=== PATIENT | female | born 2000 | race Two or more races ===

== ENCOUNTER 2022-03-13 16:58 | Emergency (ER) | payer SELFPAY ==
[2022-03-13 16:59] VITALS: BP 149/98; PULSE 90; RESP 24; TEMP 36.6; O2SAT 100; BMI 35.2
== END 2022-03-13 17:29 | disposition left against medical advice (07) ==
LOC: ED 17:30
DX: Z53.21 Procedure and treatment not carried out due to patient leaving prior to being seen by health care provider (principal)

== ENCOUNTER 2022-10-29 16:00 | Inpatient (IN) | payer OTHER, SELFPAY ==
[2022-10-29 16:01] VITALS: BP 126/91; PULSE 94; RESP 18; TEMP 36.7; O2SAT 97; BMI 34.8
--- NOTE | 2022-10-29 16:34 | ED.VIS.GI ---
HPI HPI - GI History of Present Illness Chief Complaint: Abd Pain Informant: patient Narrative Narrative: Jeremias with nausea vomiting abdominal cramping after increasing medications. Patient had an increase in her Rybelsus recently. She is on this for weight loss. She states every time they have increased it she has the same symptoms. She gets loss of appetite, nausea vomiting abdominal cramping and just does not feel well. She states she has had mild soft stool but no real diarrhea. No blood in the vomiting. No fevers or chills. She has no history of prior intra-abdominal surgeries. She has nothing at home for the nausea. She occasionally has been able to get some food and water and but not much for a few days. PFSH PFSH Allergy/AdvReac Type Severity Reaction Status Date / Time No Known Allergies Allergy Verified 10/29/22 16:01 Social History Smoking Status: Never smoker ROS ROS ED ROS Narrative A complete review of systems was performed and is negative except as documented in the history of present illness. Some specific details below. Constitutional: No recent fevers or chills. No malaise. EYE: No visual complaints or pain. ENT: No difficulty swallowing. No swelling. No pain. GERD CV: No chest pain or palpitations. Respiratory: No dyspnea. No hemoptysis. No difficulty taking breaths. GI: Please see history of present illness. : No frequency dysuria or hematuria. No odor. Musculoskeletal: No recent trauma. No pains. Skin: No rash. Nondiaphoretic. Neuro: No weakness or numbness. Endocrine: No polyuria or polydipsia. History of diabetes. EXAM Physical Exam Narrative Exam Narrative: CONSTITUTIONAL: Patient is nontoxic in appearance. The patient looks comfortable. HEENT: No notable trauma. Mucous membranes minimally dry. No sinus tenderness. No indication of pain with swallowing. EYES: No conjunctival injection. No proptosis. Icterus CARDIOVASCULAR: Regular rate. Regular rhythm. No notable murmur. No JVD. RESPIRATORY: No respiratory distress. Breathing is unlabored. No wheezes. No rhonchi. No rales. No pain with a deep breath. GASTROINTESTINAL: Not distended. Bowel sounds are normal. Very mild epigastric tenderness but no rebound or guarding. No notable right upper quadrant tenderness. Nothing below the umbilicus. GENITOURINARY: No tenderness over the bladder. No CVA tenderness. MUSCULOSKELETAL: Atraumatic. No peripheral edema. No cord. No tenderness along the deep venous system. No asymmetry. NEUROLOGICAL: Patient is alert and appropriate. No focal deficit noted. SKIN: No noted rashes. No diaphoresis. PSYCHIATRIC: Patient is calm. Mood is appropriate. Const Vital Signs: 10/29/22 16:01 10/29/22 18:01 10/29/22 19:49 Temperature 98.1 F Temperature Source Temporal Pulse Rate 94 90 Respiratory Rate 18 18 15 Blood Pressure 126/91 H 127/78 H Blood Pressure Mean 102 94 Pulse Ox 97 99 Oxygen Delivery Method Room Air Room Air MDM MDM MDM Narrative Medical decision making narrative: BC shows no marked abnormalities. Patient's electrolytes actually look pretty good. Sodium is minimally elevated. But no acute kidney disease. Patient's liver function test showed minimal elevations but she does not have isolated tenderness over about the gallbladder Patient sees negative patient's urine actually is concerning for UTI. I will treat this pending culture because she has leukocyte Estrace nitrites cloudy and white cells. But she also was not a real clean-catch. But with her nausea and we should treat this pending cultures. Patient was still complaining of pain and nausea. I have given meds for pain. I am giving further meds for nausea. We will order a CT scan as she is just complaining of discomfort and it moves to different areas. My independent interpretation of the CT shows no sign of acute obstruction. Slightly dilated small bowel loops. Gallbladder is distended but does not look inflamed. Final reading will was suspicious for some small bowel dilation which could be a localized ileus or poss no early or partial small bowel obstruction. During her exam and the lack of prior abdominal surgery I do not think this likely represents an obstruction. But my concern is if she still having pain nausea vomiting cannot keep meds down we may need to bring her in the hospital hydrate her control the symptoms and repeat imaging. Morphine to help with pain but she still has pain. Zofran did not help the vomiting she actually vomited again after that. We have given her Phenergan which is helping but she is still nauseated with this. Lab Data Attestation: I reviewed the patient's lab results. Labs: Laboratory Results - last 24 hr 10/29/22 10/29/22 16:44 17:21 WBC 8.8 RBC 4.64 Hgb 12.2 Hct 38.6 MCV 83.2 MCH 26.3 L MCHC 31.6 L RDW Std Deviation 41.2 RDW Coeff of Lisa 13.8 Plt Count 272 MPV 10.5 Immature Gran % (Auto) 0.500 Neut % (Auto) 66.7 Lymph % (Auto) 22.9 [place] % (Auto) 5.9 Eos % (Auto) 3.8 Baso % (Auto) 0.2 Absolute Neuts (auto) 5.9 Absolute Lymphs (auto) 2.01 Nucleated RBC % 0 Sodium 135 L Potassium 3.7 Chloride 104 Carbon Dioxide 23.0 Anion Gap 8 BUN 5 L Creatinine 0.69 Estim Creat Clear Calc 107.58 Est GFR (MDRD) Af Amer 140 Est GFR (MDRD) Non-Af 116 BUN/Creatinine Ratio 7.3 L Glucose 85 Calcium 9.2 Total Bilirubin 1.30 H AST 82 H ALT 89 H Alkaline Phosphatase 101 Total Protein 7.9 Albumin 3.3 Globulin 4.6 H Albumin/Globulin Ratio 0.7 L Lipase 33 Serum , Qual NEGATIVE Urine Color Luli Urine Clarity Cloudy Urine pH 6.5 Ur Specific [place] 1.020 Urine Protein 30 H Urine Glucose (UA) Normal Urine Ketones 150 A* Urine Occult Blood 10 H Urine Nitrite Positive H Urine Bilirubin 3 H Urine Urobilinogen 8 H Ur Leukocyte Esterase 500 H Urine RBC 0 SEEN Urine WBC 10-25 SEEN Ur Squamous Epith Cells 25-50 SEEN Urine Bacteria 1+ Urine Mucus 0 SEEN Radiography Diagnostic Testing: Clinical Impression(s) from Imaging Studies Abdomen/Pelvis CT 10/29/22 19:07 IMPRESSION: Left-sided small bowel dilatation which may indicate a localized ileus versus early or partial small bowel obstruction versus nonspecific distention related to peristalsis. Ankle correlation recommended and follow-up with 2 views of the abdomen recommended to evaluate for interval change. No acute appendicitis. Normal abdominal viscera. Electronically Signed: Natalie Hanks MD at 19:53 EDT , Discharge Plan Dx/Rx/DC Orders Clinical Impression: Urinary tract infection, Ileus, Intractable nausea and vomiting Disposition Disposition: Acute Care Hospital [facility]
[2022-10-29] MEDS: Dicyclomine 20 MG/2 ML Vial IM (16:52)
[2022-10-29] MEDS: 0.9% Normal Saline 1,000 ML 1000 ML IV (16:52)
[2022-10-29] MEDS: Ondansetron 4 MG/2 ML Vial IV (16:52)
[2022-10-29 16:57] LABS: Absolute Lymphocyte Count 2.01 X10^3/uL (0.83-4.51); Absolute Neutrophil Count 5.9 X10^3/uL (2.0-7.7); Basophil# 0.02 X10^3/uL; Basophil% 0.2 % (0-1); Eosinophil# 0.33 X10^3/uL; Eosinophils% 3.8 % (0-5); Hematocrit 38.6 % (37-47); Hemoglobin 12.2 g/dL (12.0-15.0); Lymphocyte # 2.01 X10^3/ul (0.83-4.51); Lymphocyte % 22.9 % (19-41); Mean Corp Hgb Conc 31.6 g/dL (32-36); Mean Corpuscular Hgb 26.3 pg (27.0-32.0); Mean Corpuscular Volume 83.2 fL (81-99); Mean Platelet Vol. 10.5 fl (6.2-12.0); Monocyte# 0.52 X10^3/uL; Monocyte% 5.9 % (0-10); NRBC Flagged by Analyzer 0 % (0-5); Neutrophil # 5.87 X10^3/uL (2.7-7.7); Neutrophil % 66.7 % (47-70); Platelet Count 272 K/mm3 (150-450); RBC Distribution Width CV 13.8 % (11.6-14.6); RBC Distribution Width SD 41.2 fl (35.1-43.9); Red Blood Count 4.64 M/mm3 (4.2-5.4); White Blood Count 8.8 K/mm3 (4.4-11.0)
[2022-10-29 17:02] LABS: Internal QC Validated? YES +Cl - CLEAR BKGD; Pregnancy, Serum, hCG Quali. NEGATIVE Negative
[2022-10-29 17:16] LABS: ALB/GLOB Ratio 0.7 RATIO (0.9-2.4); AST(SGOT) 82 U/L (15-37); Alanine Aminotransfer ALT/SGPT 89 U/L (13-56); Albumin, Serum 3.3 g/dL (3.2-5.0); Alkaline Phosphatase 101 U/L (45-117); Anion Gap 8 (5-15); BUN 5 mg/dL (7-18); BUN/Creat Ratio 7.3 RATIO (10-20); Calcium,Total 9.2 mg/dL (8.5-10.1); Chloride 104 mmol/L (98-107); Creatinine, Serum 0.69 mg/dL (0.55-1.02); EST Glomerular Filtration Rate 116 mL/min (>60); Est Glom Filt Rate - Afr Amer 140 mL/min (>60); Estimated Creatinine Clearance 107.58 ml/min; Globulin 4.6 g/dL (2.2-4.2); Glucose 85 mg/dL (74-106); Lipase 33 U/L (13-75); Potassium 3.7 mmol/L (3.5-5.1); Protein, Total 7.9 g/dL (6.4-8.2); Sodium Level 135 mmol/L (136-145)
[2022-10-29 17:27] LABS: Mucous, Urine 0 SEEN /hpf (<or=2+); Red Blood Cells-Urine 0 SEEN /hpf (0-5)
[2022-10-29 17:59] LABS: Color, Urine Amber (Yellow); Glucose, Dipstick Normal (Normal); Leukocyte Esterase-Dipstick 500 /ul (Negative); Nitrite-Dipstick Positive (Negative); Occult Blood-Urine 10 /ul (Negative); Protein-Dipstick 30 mg/dl (Negative); Urine Clarity Cloudy (Clear); Urine Urobilinogen 8 mg/dl (Normal); Urine pH 6.5 (5.0 - 8.0)
[2022-10-29 18:01] VITALS: RESP 18
[2022-10-29 18:06] LABS: Ketone-Dipstick 150 mg/dl (Negative); Urine Bilirubin Dipstick 3 mg/dL (Negative)
[2022-10-29 18:08] LABS: Bacteria 1+ /hpf (None Seen); Squamous Epithelial Cells - UA 25-50 SEEN /hpf (5-10); White Blood Cells 10-25 SEEN /hpf (0-5)
[2022-10-29] MEDS: Ceftriaxone 1 GM/50 ML BAG IV (18:44)
--- NOTE | 2022-10-29 19:07 | CT_ITS ---
STUDY: CT ABDOMEN AND PELVIS WITH CONTRAST REASON FOR EXAM: Female, 22 years old. pain RADIATION DOSAGE (If Supplied By Facility): CTDIvol = ( 16.23 ) mGy, DLP = ( 1106.80 ) mGycm TECHNIQUE: Transaxial images were obtained from the dome of the diaphragm to the symphysis pubis without oral contrast. IV 100mL Isovue-370 was administered. Sagittal and coronal images were reconstructed. Individualized dose optimization techniques were used for this CT. COMPARISON: None. FINDINGS: The visualized lung bases are unremarkable. The visualized portions of the heart are within normal limits. Normal liver. Normal gallbladder and extrahepatic biliary system. Normal spleen. Normal pancreas. Normal bilateral adrenal glands. Normal right kidney. Normal left kidney. Normal visualized stomach. Multiple loops of small bowel in the left upper abdomen distended up to maximum diameter of 2.9-3.0 cm with decreased caliber distally suggestive of early small bowel obstruction versus localized ileus. Normal colon. The appendix is visualized and appears normal. Normal abdominal aorta. Normal inferior vena cava. Normal retroperitoneum. Normal urinary bladder. Normal abdominal wall. Normal osseous structures. CT/Abdomen/Pelvis W IV Cont ONLY IMPRESSION: Left-sided small bowel dilatation which may indicate a localized ileus versus early or partial small bowel obstruction versus nonspecific distention related to peristalsis. Ankle correlation recommended and follow-up with 2 views of the abdomen recommended to evaluate for interval change. No acute appendicitis. Normal abdominal viscera. Electronically Signed: Natalie Hanks MD at 19:53 EDT ,
[2022-10-29 19:49] VITALS: BP 127/78; PULSE 90; RESP 15; O2SAT 99
[2022-10-29] MEDS: Morphine 4 MG/ML Syringe IV (19:55)
[2022-10-29] MEDS: proMETHazine 25 MG/ML Syringe 12.5 MG IM (20:06)
[2022-10-29 20:38] VITALS: BP 128/70; PULSE 84; RESP 15; TEMP 36.6; O2SAT 98
--- NOTE | 2022-10-29 20:38 | PCM.HP.STD ---
HPI - General General Date of Admission: 10/29/22 Date of Service: 10/29/22 Chief Complaint: Abdominal cramping, N/V HPI Narrative The patient is a 22 y/o F w/ PMHx: Anxiety and Depression/ADHD, PCOS, Asthma, Obesity on semaglutide for reported weight loss who presents to the [facility] ED on 10/29/22 with history of onset of nausea, emesis and abdominal cramping after recent increase of her weight loss medication with similar symptoms after each increase of her regimen with mild soft stools with no fever or chills with no prior intra-abdominal surgeries with occasional ability to get down food and water but notable difficulty over the last couple days. She does report that over the last several days she has had increased urinary frequency but no dysuria, urgency or hesitancy. Work-up in the ED included T98.1, heart rate 94, BP 126/91 with most recent repeat 127/78, respiratory rate 15, 99% on room air, CBC with WC 8.8, he 112.2, platelet 272 without marked shift, BMP with sodium 135, T. bili 1.30, AST/LT 82/89, lipase 33, serum negative, urinalysis with cloudy appearing urine, specific remedy 1.020, 30 protein, 150 ketones, 10 occult blood, positive urine nitrite, 3 urine bilirubin, 8 urine urobilinogen, 500 leukocyte esterase with urine WC is 10-25, 1+ urine bacteria however this is a very poor sample as urine squamous epithelial cells 25-50, urine culture pending per ED however repeat culture based off better sample requested, CT abdomen and pelvis with a left-sided small bowel dilatation possibly indicating a localized ileus versus early or partial small bowel obstruction versus nonspecific distention related to peristalsis, no acute appendicitis, normal abdominal viscera. In the ED patient ministered 1 L normal saline, Phenergan 12.5 mg IM x1, Zofran 4 mg IV x1, dicyclomine 20 mg IM x1, morphine 4 mg IV x1, Rocephin 1 g IV x1. [facility] Medical History (Updated 10/29/22 @ 21:[address] Brenda Gomez MD) ADHD Anxiety and depression Asthma Obesity PCOS (polycystic ovarian syndrome) Home Medications Concerta 15 mg PO DAILY 10/29/22 [History Last Taken Unknown] Rybelsus 18 mg PO DAILY 10/29/22 [History Last Taken Unknown] agoprex 25 mg PO QHS 10/29/22 [History Last Taken Unknown] duzela 60 mg PO DAILY 10/29/22 [History Last Taken Unknown] Allergy/AdvReac Type Severity Reaction Status Date / Time No Known Allergies Allergy Verified 10/29/22 16:01 Family History (Updated 10/29/22 @ 21:[address] Brenda Gomez MD) Mother Diabetes Thyroid disorder Father Hypertension History of alcohol abuse Surgical History (Updated 10/29/22 @ 21:[address] Brenda Gomez MD) No history of previous surgery Social History (Updated 10/29/22 @ 21:[address] Brenda Gomez MD) household members: other details: College dorm. Smoking Status: Never smoker alcohol intake: current alcohol intake frequency: holidays/special occasions only substance use type: does not use ROS ROS Narrative Admission Review of Systems: CONSTITUTIONAL: No weight loss, fever, chills, + weakness or fatigue. HEENT: Eyes: No visual loss, blurred vision, double vision or yellow sclerae. Ears, Nose, Throat: No hearing loss, sneezing, congestion, runny nose or sore throat. SKIN: No rash or itching, lesions, wounds. CARDIOVASCULAR: No chest pain, chest pressure or chest discomfort, palpitations, edema, orthopnea, syncopal events. RESPIRATORY: No shortness of breath, cough or sputum, wheezing, hemoptysis. GASTROINTESTINAL: + anorexia, nausea, vomiting, single loose stool without severe diarrhea, abdominal pain. No melena, BRBPR. GENITOURINARY: + Mild increased urinary frequency. No dysuria, urgency or retention. NEUROLOGICAL: No headache, dizziness, syncope, paralysis, ataxia, numbness or tingling in the extremities, focal weakness, change in bowel or bladder control, seizure. MUSCULOSKELETAL: + muscle, back pain, joint pain or stiffness. HEMATOLOGIC: No anemia, bleeding or bruising. LYMPHATICS: No enlarged nodes. No history of splenectomy. PSYCHIATRIC: + history of depression or anxiety/ADHD ENDOCRINOLOGIC: No reports of sweating, cold or heat intolerance. No polyuria or polydipsia. ALLERGIES: No history of asthma, hives, eczema or rhinitis. Vital Signs Vital Signs Vital Signs: 10/29/22 16:01 10/29/22 18:01 10/29/22 19:49 Temperature 98.1 F Temperature Source Temporal Pulse Rate 94 90 Respiratory Rate 18 18 15 Blood Pressure 126/91 H 127/78 H Blood Pressure Mean 102 94 Pulse Ox 97 99 Oxygen Delivery Method Room Air Room Air Weight Weight: 196 lb 9.6 oz Body Mass Index (BMI) 34.8 Physical Exam Narrative Physical Examination: General: Awake, alert, oriented x 3 and cooperative, seated upright in the ED bed in no apparent distress but uncomfortable appearing, several roommates present and giving history for her from several medical files. Skin: Normal color, normal turgor, no icterus, no cyanosis. HEENT: AT/NC, EOMI, PERRLA, mildly dry MM, no carotid bruits or JVD noted. Lungs: Mildly diminished, greater bases, appropriate effort, no rales, ronchi or wheezing. Heart: Currently regular rate and rhythm; no gallop, rub audible. Abdomen: Soft, obese, mild generalized discomfort with palpation however worse left lower quadrant, hypoactive bowel sounds, no obvious HSM. Extremities: No cyanosis, clubbing, or edema. Neurological: Patient awake, alert, oriented as noted, cognitive function intact; pupils equally reactive to light and accommodation, cranial nerves II-XII grossly normal, moving all 4 extremities, no focal deficits, strength moderately globally decreased secondary to her acute discomfort/presentation. Psychiatric: Affect appears fatigued, uncomfortable, no acute evidence of depressive or anxiety feelings but does have underlying history. Results Lab / Micro Data 10/29/22 16:44 10/29/22 16:44 Labs: Laboratory Results - last 24 hr 10/29/22 16:44: WBC 8.8, RBC 4.64, Hgb 12.2, Hct 38.6, MCV 83.2, MCH 26.3 L, MCHC 31.6 L, RDW Std Deviation 41.2, RDW Coeff of Lisa 13.8, Plt Count 272, MPV 10.5, Immature Gran % (Auto) 0.500, Neut % (Auto) 66.7, Lymph % (Auto) 22.9, [place] % (Auto) 5.9, Eos % (Auto) 3.8, Baso % (Auto) 0.2, Absolute Neuts (auto) 5.9, Absolute Lymphs (auto) 2.01, Nucleated RBC % 0, Sodium 135 L, Potassium 3.7, Chloride 104, Carbon Dioxide 23.0, Anion Gap 8, BUN 5 L, Creatinine 0.69, Estim Creat Clear Calc 107.58, Est GFR (MDRD) Af Amer 140, Est GFR (MDRD) Non-Af 116, BUN/Creatinine Ratio 7.3 L, Glucose 85, Calcium 9.2, Total Bilirubin 1.30 H, AST 82 H, ALT 89 H, Alkaline Phosphatase 101, Total Protein 7.9, Albumin 3.3, Globulin 4.6 H, Albumin/Globulin Ratio 0.7 L, Lipase 33, Serum , Qual NEGATIVE 10/29/22 17:21: Urine Color Luli, Urine Clarity Cloudy, Urine pH 6.5, Ur Specific [place] 1.020, Urine Protein 30 H, Urine Glucose (UA) Normal, Urine Ketones 150 A*, Urine Occult Blood 10 H, Urine Nitrite Positive H, Urine Bilirubin 3 H, Urine Urobilinogen 8 H, Ur Leukocyte Esterase 500 H, Urine RBC 0 SEEN, Urine WBC 10-25 SEEN, Ur Squamous Epith Cells 25-50 SEEN, Urine Bacteria 1+, Urine Mucus 0 SEEN Radiology Impression Abdomen/Pelvis CT 10/29/22 19:07 IMPRESSION: Left-sided small bowel dilatation which may indicate a localized ileus versus early or partial small bowel obstruction versus nonspecific distention related to peristalsis. Ankle correlation recommended and follow-up with 2 views of the abdomen recommended to evaluate for interval change. No acute appendicitis. Normal abdominal viscera. Electronically Signed: Natalie Hanks MD at 19:53 EDT , Assessment & Plan Assessment/Plan (1) Urinary tract infection: PLAN: Plan The patient is a 22 y/o F w/ PMHx: Anxiety and Depression/ADHD, PCOS, Asthma, Obesity on semaglutide for reported weight loss who presents to the [facility] ED on 10/29/22 with history of onset of nausea, emesis and abdominal cramping after recent increase of her weight loss medication with similar symptoms after each increase of her regimen with mild soft stools with no fever or chills with no prior intra-abdominal surgeries with occasional ability to get down food and water but notable difficulty over the last couple days. #1. Acute Complicated Urinary Tract Infection, although poor sample with repeat pending: Will admit to medical surgical floor, UA upon ED evaluation remarkable however this was a poor sample with notable squamous epithelial cells therefore repeat UA catheterized requested and urine culture to be obtained off of this new sample, continue IVFs, monitor I/Os, continue IV Rocephin w/ transition as able pending sensitivities and speciation. #2. Mild transaminitis: Patient is on semaglutide and side effects can be gallbladder disease and biliary tract disease including cholelithiasis and cholecystitis in addition to GI side effects with abdominal pain, constipation, diarrhea, nausea and emesis therefore certainly a likely etiology for some of the patient presentation, will strongly recommend this medication be discontinued, will continue treatment as noted with hydration as likely from dehydration with concurrent nausea/emesis intractably, repeat CMP in AM and if necessary with further trending upward of liver function may obtain gallbladder ultrasound. #3. Abnormal CT with possible localized ileus versus early or partial SBO versus nonspecific distention related to peristalsis: Again recent initiation of semaglutide suspected as primary etiology as this has notable GI including abdominal pain, constipation, diarrhea, nausea and emesis, will maintain n.p.o. status until clinically improving, if nausea and emesis are intractable low threshold to place NG tube to low intermittent wall suction, will maintain on judicious IV fluids, will plan repeat KUB in a.m. and if clinically improving advance diet to release clears, low threshold to involve surgery if not improving or worsening. #4. Obesity: Weight loss and lifestyle changes encouraged with avoidance of semaglutide, may benefit from consultation with nutrition outpatient and exercise program recommendations. #5. Anxiety and Depression/ADHD: We will temporally hold patient home oral regimen including does Yumiko, Concerta and go proximal given concern for ileus and possible early partial small bowel obstruction, resume once clinically appropriate. #6. PCOS: Likely related unfortunately with chronic issues with obesity, encourage continued outpatient follow-up with her physician/specialist for alternate ways of achieving weight loss given severity of her current presentation and suspected medication related. #7. Chronic Asthma: Will have PRN albuterol, HOB, IS parameters. #8. DVT prophylaxis: Low risk, encourage ambulation. Charges/Coding Visit Charges Inpatient E&M: 01349 Init Hosp L3
[2022-10-29 21:21] LABS: Bacteria 0 SEEN /hpf (None Seen); Mucous, Urine 0 SEEN /hpf (<or=2+); Squamous Epithelial Cells - UA 0 SEEN /hpf (5-10); White Blood Cells 0 SEEN /hpf (0-5)
[2022-10-29 21:22] LABS: Color, Urine Yellow (Yellow); Glucose, Dipstick Normal (Normal); Ketone-Dipstick 15 mg/dl (Negative); Leukocyte Esterase-Dipstick 25 /ul (Negative); Nitrite-Dipstick Negative (Negative); Occult Blood-Urine 10 /ul (Negative); Protein-Dipstick Negative (Negative); Specific Gravity, Urine 1.005 (1.002-1.030); Urine Bilirubin Dipstick Negative (Negative); Urine Clarity Clear (Clear); Urine Urobilinogen Normal (Normal)
[2022-10-29 21:31] LABS: Red Blood Cells-Urine 0-5 SEEN /hpf (0-5)
[2022-10-29 21:38] VITALS: BMI 36.1
[2022-10-29] MEDS: 0.9% Saline Lock 10 ML Syringe IV (22:13)
[2022-10-29] MEDS: 0.9% Normal Saline 1,000 ML 100 ML IV (22:13)
[2022-10-29 22:29] VITALS: BP 130/90; PULSE 82; RESP 16; TEMP 36.7; O2SAT 99
[2022-10-30 05:40] VITALS: BP 120/70; PULSE 88; RESP 16; TEMP 36.7; O2SAT 98
[2022-10-30] MEDS: Mag Hydrox/Al Hydrox/Simeth 30 ML UDC PO ×3 (05:50→22:25)
[2022-10-30] MEDS: Ketorolac 15 MG/ML Vial IV ×2 (05:51→11:51)
[2022-10-30 06:18] LABS: Absolute Lymphocyte Count 2.36 X10^3/uL (0.83-4.51); Absolute Neutrophil Count 4.9 X10^3/uL (2.0-7.7); Basophil# 0.02 X10^3/uL; Basophil% 0.2 % (0-1); Eosinophil# 0.33 X10^3/uL; Hematocrit 35.4 % (37-47); Hemoglobin 10.9 g/dL (12.0-15.0); Lymphocyte # 2.36 X10^3/ul (0.83-4.51); Mean Corp Hgb Conc 30.8 g/dL (32-36); Mean Corpuscular Hgb 26.4 pg (27.0-32.0); Mean Corpuscular Volume 85.7 fL (81-99); Mean Platelet Vol. 10.5 fl (6.2-12.0); Monocyte# 0.54 X10^3/uL; Monocyte% 6.6 % (0-10); NRBC Flagged by Analyzer 0 % (0-5); Neutrophil # 4.87 X10^3/uL (2.7-7.7); Neutrophil % 59.8 % (47-70); Platelet Count 242 K/mm3 (150-450); RBC Distribution Width CV 13.7 % (11.6-14.6); RBC Distribution Width SD 42.5 fl (35.1-43.9); Red Blood Count 4.13 M/mm3 (4.2-5.4); White Blood Count 8.2 K/mm3 (4.4-11.0)
[2022-10-30 06:51] LABS: ALB/GLOB Ratio 0.7 RATIO (0.9-2.4); AST(SGOT) 71 U/L (15-37); Alanine Aminotransfer ALT/SGPT 89 U/L (13-56); Albumin, Serum 2.8 g/dL (3.2-5.0); Alkaline Phosphatase 85 U/L (45-117); Anion Gap 7 (5-15); BUN 3 mg/dL (7-18); BUN/Creat Ratio 5.4 RATIO (10-20); Calcium,Total 8.4 mg/dL (8.5-10.1); Chloride 107 mmol/L (98-107); Creatinine, Serum 0.56 mg/dL (0.55-1.02); EST Glomerular Filtration Rate 147 mL/min (>60); Est Glom Filt Rate - Afr Amer 178 mL/min (>60); Estimated Creatinine Clearance 126.74 ml/min; Globulin 4.3 g/dL (2.2-4.2); Glucose 75 mg/dL (74-106); Protein, Total 7.1 g/dL (6.4-8.2); Sodium Level 138 mmol/L (136-145)
[2022-10-30 07:30] VITALS: BP 111/59; PULSE 88; RESP 18; TEMP 36.4; O2SAT 99
--- NOTE | 2022-10-30 08:38 | PN.HOSP_ITS ---
Subjective Subjective Doing well, no issues overnight. No more nausea Objective Data Objective Data Vital Signs: Vital Signs Temp Pulse Resp BP Pulse Ox O2 Del Method 98.1 F 88 16 120/70 98 Room Air 10/30/22 05:40 10/30/22 05:40 10/30/22 05:40 10/30/22 05:40 10/30/22 05:40 10/30/22 05:40 Oxygen Delivery Method Room Air Weight: 197 lb 11.2 oz Body Mass Index (BMI) 36.1 Intake & Output: Intake and Output for Last 24 Hours 10/29/22 10/30/22 10/31/22 03:59 03:59 03:59 Intake Total 1160 / 1160 Balance 1160 / 1160 Lab / Micro Data 10/30/22 05:48 10/30/22 05:48 Labs: Laboratory Results - last 24 hr 10/29/22 16:44: WBC 8.8, RBC 4.64, Hgb 12.2, Hct 38.6, MCV 83.2, MCH 26.3 L, MCHC 31.6 L, RDW Std Deviation 41.2, RDW Coeff of Lisa 13.8, Plt Count 272, MPV 10.5, Immature Gran % (Auto) 0.500, Neut % (Auto) 66.7, Lymph % (Auto) 22.9, [place] % (Auto) 5.9, Eos % (Auto) 3.8, Baso % (Auto) 0.2, Absolute Neuts (auto) 5.9, Absolute Lymphs (auto) 2.01, Nucleated RBC % 0, Sodium 135 L, Potassium 3.7, Chloride 104, Carbon Dioxide 23.0, Anion Gap 8, BUN 5 L, Creatinine 0.69, Estim Creat Clear Calc 107.58, Est GFR (MDRD) Af Amer 140, Est GFR (MDRD) Non-Af 116, BUN/Creatinine Ratio 7.3 L, Glucose 85, Calcium 9.2, Total Bilirubin 1.30 H , AST 82 H, ALT 89 H, Alkaline Phosphatase 101, Total Protein 7.9, Albumin 3.3, Globulin 4.6 H, Albumin/Globulin Ratio 0.7 L, Lipase 33, Serum , Qual NEGATIVE 10/29/22 17:21: Urine Color Luli, Urine Clarity Cloudy, Urine pH 6.5, Ur Specific [place] 1.020, Urine Protein 30 H, Urine Glucose (UA) Normal, Urine Ketones 150 A*, Urine Occult Blood 10 H, Urine Nitrite Positive H, Urine Bilirubin 3 H, Urine Urobilinogen 8 H, Ur Leukocyte Esterase 500 H, Urine RBC 0 SEEN, Urine WBC 10-25 SEEN, Ur Squamous Epith Cells 25-50 SEEN, Urine Bacteria 1+, Urine Mucus 0 SEEN 10/29/22 21:00: Urine Color Yellow, Urine Clarity Clear, Urine pH 7.0, Ur Specific [place] 1.005, Urine Protein Negative, Urine Glucose (UA) Normal, Urine Ketones 15 H, Urine Occult Blood 10 H, Urine Nitrite Negative, Urine Bilirubin Negative, Urine Urobilinogen Normal, Ur Leukocyte Esterase 25 H, Urine RBC 0-5 SEEN, Urine WBC 0 SEEN, Ur Squamous Epith Cells 0 SEEN, Urine Bacteria 0 SEEN, Urine Mucus 0 SEEN 10/30/22 05:48: WBC 8.2, RBC 4.13 L, Hgb 10.9 L, Hct 35.4 L, MCV 85.7, MCH 26.4 L, MCHC 30.8 L, RDW Std Deviation 42.5, RDW Coeff of Lisa 13.7, Plt Count 242, MPV 10.5, Immature Gran % (Auto) 0.400, Neut % (Auto) 59.8, Lymph % (Auto) 29.0, Christian % (Auto) 6.6, Eos % (Auto) 4.0, Baso % (Auto) 0.2, Absolute Neuts (auto) 4.9, Absolute Lymphs (auto) 2.36, Nucleated RBC % 0, Sodium 138, Potassium 4.0, Chloride 107, Carbon Dioxide 24.0, Anion Gap 7, BUN 3 L, Creatinine 0.56, Estim Creat Clear Calc 126.74, Est GFR (MDRD) Af Amer 178, Est GFR (MDRD) Non-Af 147, BUN/Creatinine Ratio 5.4 L, Glucose 75, Calcium 8.4 L, Total Bilirubin 1.20 H, AST 71 H, ALT 89 H, Alkaline Phosphatase 85, Total Protein 7.1, Albumin 2.8 L, Globulin 4.3 H, Albumin/Globulin Ratio 0.7 L Radiography Diagnostic Testing: Radiology Impression Abdomen/Pelvis CT 10/29/22 19:07 IMPRESSION: Left-sided small bowel dilatation which may indicate a localized ileus versus early or partial small bowel obstruction versus nonspecific distention related to peristalsis. Ankle correlation recommended and follow-up with 2 views of the abdomen recommended to evaluate for interval change. No acute appendicitis. Normal abdominal viscera. Electronically Signed: Natalie Hanks MD at 19:53 EDT Reading [facility] [place] , Service support , Physical Exam Narrative General: Alert, Oriented x3, Cooperative, No apparent distress HEENT: Atraumatic, PERRLA, EOMI, Normocephalic Oral: Moist Mucosa Neck: Supple, No JVD Lungs: Clear to auscultation, Normal air movement, No rhonchi, No wheeze, No rales Cardiovascular: Regular rate, Regular Rhythm, Normal S1, Normal S2, No murmurs Abdomen: Soft, Non Tender, Non-Distended, No Hepato-splenomegaly Extremities: No edema, Capillary Refill Less than 3 Seconds Skin: No rashes, No breakdown Musculoskeletal: No Tenderness to Palpation of Joints or Extremities Neurological: Cranial nerves II-XII grossly intact, Motor Exam 5/5 strength throughout, Sensory exam intact to light touch and pain Psych/Mental Status: Normal Affect, Appropriate Assessment & Plan Assessment/Plan (1) Urinary tract infection: PLAN: Plan 1. Intractable nausea vomiting ? She has no history of intra-abdominal surgeries and at her age unlikely of cancer therefore small bowel obstruction is not truly part of the differential diagnosis ? She is on multiple could lead to the nausea and vomiting ? We will trial her with clear liquids and if she can tolerate can plan for discharge today ? Her transaminitis is also explained by medications ? Her UA is unconvincing for UTI as are no urine bacteria she did receive a dose of Rocephin if necessary can discharge her with 3 days total of antibiotics 2. Anxiety/depression/ADHD ? Stable ? She can resume her medications on discharge DVT: Ambulation Charges/Coding Visit Charges Inpatient E&M: 56215 Subs Hosp L2
[2022-10-30] MEDS: Loratadine 10 MG Tablet PO (09:15)
--- NOTE | 2022-10-30 09:26 | RAD_ITS ---
STUDY: X-RAY - ABDOMEN/PELVIS REASON FOR EXAM: Female, 22 years old. Ileus TECHNIQUE: Single AP view of the abdomen / pelvis. COMPARISON: None. FINDINGS: Normal visualized lung bases. There is a moderate amount of colonic fecal material. Contrast is seen in the bladder from recent CT scan of the abdomen. The visualized liver, spleen and kidneys are grossly normal in size and morphology. Normal soft tissue structures. Normal visualized osseous structures. RAD/Abdomen Single View IMPRESSION: Moderate amount of fecal material is seen in the colon. Electronically Signed: Blayne Asencio MD at 14:04 EDT ,
[2022-10-30 09:48] VITALS: O2SAT 98
[2022-10-30] MEDS: 0.9% Saline Lock 10 ML Syringe IV ×2 (09:55→12:09)
[2022-10-30] MEDS: Ondansetron 4 MG/2 ML Vial IV (09:55)
[2022-10-30] MEDS: 0.9% Normal Saline 1,000 ML 100 ML IV (10:51)
[2022-10-30] MEDS: Ceftriaxone 1 GM/50 ML BAG IV (10:51)
[2022-10-30] MEDS: proCHLORPERazine 10 MG/2 ML Vial 5 MG IV (12:09)
--- NOTE | 2022-10-30 14:02 | CASEMGMT ---
GUS GOEL Assessment: Face to Face with pt for initial transition planning/care coordination assessment. GUS GOEL introduced self and role at [facility], pt voices understanding and consents to assessment. Pt is A/O x4 and answers all questions appropriately at this time. Pt with friend visiting, she is agreeable to assessment with friend present. Care providers, pharmacy, and demographics verified/updated. Admitting Dx: intractable N/V, ileus, poss UTI PCP:None, provided pt with a local healthcare directory pamphlet Specialists:None Preferred Pharmacy: [facility] Retail Insurance: [employer] Prescription Benefit: yes LNOK: Brenda Liu, aunt Living Arrangements: Pt lives in a dorm with one roommate and 3-4 flights of stairs to enter or an elevator. Pt reports she is I in ADL's and denies concerns at home. Pt is a college student. Transportation: Pt relies on friends for transportation. DME/HHC/SNF: Pt has a BP monitor at home, denies hx of HHC or SNF stays. Pt states no concerns with going home at time of dc. Pt states no further concerns/needs. CM to follow. Advised pt to ask CM if any further question/concerns/needs arise, voices understanding. Pt Goal: Home Plan: Home
[2022-10-30 15:19] VITALS: BP 124/83; PULSE 84; RESP 18; TEMP 37.1; O2SAT 99
[2022-10-30 21:15] VITALS: BP 140/83; PULSE 79; RESP 18; TEMP 36.6; O2SAT 98
[2022-10-30] MEDS: Polyethylene Glycol 3350 17 GM PACKET PO (22:25)
[2022-10-31 02:24] VITALS: BP 108/65; PULSE 78; RESP 18; TEMP 36.6; O2SAT 99
[2022-10-31 05:45] LABS: Absolute Lymphocyte Count 2.43 X10^3/uL (0.83-4.51); Absolute Neutrophil Count 3.2 X10^3/uL (2.0-7.7); Basophil# 0.02 X10^3/uL; Basophil% 0.3 % (0-1); Eosinophil# 0.38 X10^3/uL; Eosinophils% 5.8 % (0-5); Hematocrit 34.3 % (37-47); Hemoglobin 10.8 g/dL (12.0-15.0); Lymphocyte # 2.43 X10^3/ul (0.83-4.51); Mean Corp Hgb Conc 31.5 g/dL (32-36); Mean Corpuscular Hgb 26.5 pg (27.0-32.0); Mean Corpuscular Volume 84.3 fL (81-99); Mean Platelet Vol. 10.8 fl (6.2-12.0); Monocyte# 0.52 X10^3/uL; Monocyte% 7.9 % (0-10); NRBC Flagged by Analyzer 0 % (0-5); Neutrophil % 48.7 % (47-70); Platelet Count 229 K/mm3 (150-450); RBC Distribution Width CV 13.8 % (11.6-14.6); RBC Distribution Width SD 42.5 fl (35.1-43.9); Red Blood Count 4.07 M/mm3 (4.2-5.4); White Blood Count 6.6 K/mm3 (4.4-11.0)
[2022-10-31 06:00] VITALS: BMI 36.2
[2022-10-31 06:13] LABS: Anion Gap 5 (5-15); BUN 2 mg/dL (7-18); BUN/Creat Ratio 3.8 RATIO (10-20); Calcium,Total 8.7 mg/dL (8.5-10.1); Chloride 109 mmol/L (98-107); Creatinine, Serum 0.52 mg/dL (0.55-1.02); EST Glomerular Filtration Rate 158 mL/min (>60); Est Glom Filt Rate - Afr Amer 191 mL/min (>60); Estimated Creatinine Clearance 136.49 ml/min; Glucose 86 mg/dL (74-106); Potassium 3.8 mmol/L (3.5-5.1); Sodium Level 139 mmol/L (136-145)
[2022-10-31 08:24] VITALS: BP 131/87; PULSE 94; RESP 18; TEMP 36.9; O2SAT 99
[2022-10-31] MEDS: Ceftriaxone 1 GM/50 ML BAG IV (09:11)
[2022-10-31] MEDS: Loratadine 10 MG Tablet PO (09:13)
--- NOTE | 2022-10-31 11:17 | PCM.DC ---
Discharge Instructions Diet Discharge Diet: Low fat / Low cholesterol Activity Discharge Activity: Return to Normal Activity Weight Bearing Status: Weight bearing as tolerated Dressing / Incision Call your doctor if you observe: Fever of 101 or Higher, Shortness of breath, Dizziness, Swelling in the ankles, Chest pain and - (intractable nausea and vomiting, abdominal pain. ) Follow Up Care Test Results: Test results from this visit will be discussed in further detail at your follow-up appointment, if applicable. Discharge Plan Admission Admit Date/Time: 10/29/22 20:38 Primary Reason for Your Visit: intractable nausea and vomiting Attending Provider: Stacey Godinez Primary Care Provider: Charley Levy,No Primary Consulting Providers: Brenda Gomez; Erik Holguin Instructions Patient Instructions: Ileus Additional Instructions / Restrictions: follow up with hydrator operator and therapist in [place] via telehealth as already scheduled Discharge Orders/Prescriptions Prescriptions: New cefdinir 300 mg capsule 300 mg PO BID Qty: 10 0RF Continued duzela 60 mg PO DAILY agoprex 25 mg PO QHS Concerta 15 mg PO DAILY Discontinued Rybelsus 18 mg PO DAILY Referrals / Follow Up: Care Physician,No Primary [Primary Care Provider] - Disposition Disposition (needs filled in before D/C Order can be placed): Home, Self Care
--- NOTE | 2022-10-31 11:23 | DS.PCM_ITS ---
Providers Date of Admission: 10/29/22 Date of Discharge: 10/31/22 Primary Care Physician: No Primary Care Phys Reason For Visit: INTRACTABLE N/V, ILEUS, POSS UTI Diagnosis Discharge Diagnosis (1) Urinary tract infection: Status: Acute Code(s): N39.0 - Urinary tract infection, site not specified Medications at Discharge Home Medications Concerta 15 mg PO DAILY 10/29/22 agoprex 25 mg PO QHS 10/29/22 duzela 60 mg PO DAILY 10/29/22 cefdinir 300 mg capsule 300 mg PO BID #10 caps 10/31/22 Hospital Course Operations None Procedures None Summary of Care Provided Minutes Spent on Discharge: 45 Hospital Course: Patient is a 22-year-old female with a past medical history as outlined including anxiety, depression and ADHD, PCOS and asthma. Patient had been on semaglutide for weight loss and has been taking it for several months. She said she had lost about 15 kg in the roughly 4 months that she had been taking it. She came into the ED on 10/29/2022 with a complaint of nausea and vomiting and abdominal cramping after recent increase of her weight loss medication. She had had similar symptoms after each increase of her medication. She could not keep food or water down. She says she had also had some increased urinary frequency but no dysuria. On admission urinalysis showed 1+ bacteria. CT of the abdomen and pelvis showed a left-sided small bowel dilatation indicating possible localized ileus versus early or partial small bowel obstruction versus nonspecific distention due to peristalsis and no acute appendicitis. She was hydrated with IV fluids and started on IV Zofran and IM Phenergan and admitted and managed for intractable nausea and vomiting. His symptoms gradually improved and she felt better. She was started on IV ceftriaxone for UTI. Her semaglutide was held. In light of the worsening of her symptoms with increased dosage of her semaglutide, it was surmised that his symptoms were likely due to side effects of semaglutide especially at the increased dose. Semaglutide is known to cause nausea and vomiting as well as gastroparesis and to sign out IBS and this could all explain her symptoms. Patient was counseled that she was to stop his semaglutide until she followed up with her dealer accounts investigator to discuss her recent admission and for decision to be made about whether I should be resumed and at what dose. Patient said dealer accounts investigator was in [place] as well as a therapist and she usually saw them via telemetry medicine appointment and she flew back to [facility] every 4 months to get her refill of semaglutide. She was due to have an appointment with her dealer accounts investigator within this week. She remained stable and was discharged on 10/31/2022. She was discharged on a dose of cefdinir 300 mg twice daily for 5 days. Urine culture grew gram-negative marianna speciation of which was pending at time of discharge. Even though UTI could also explain her symptoms the fact that she had had similar symptoms previously and kept worsening as it does increase pointed more in the direction of the semaglutide. She is to follow-up with her primary care doctor within 1 to 2 weeks. Patient seen and examined prior to discharge. She felt much better and had no complaints. Review of systems otherwise negative. Labs and vitals reviewed. Home medication reviewed and reconciled. Physical Exam Const alert, oriented x3 and no apparent distress General Appearance: cooperative and comfortable Orientation / Consciousness: awake Exam Limitations: no limitations HEENT normocephalic, head/scalp atraumatic, hearing grossly normal bilaterally and moist oral mucous membranes Mouth: oral and palatal mucosa normal Eyes PERRL, EOMs intact bilaterally and conjunctivae normal Resp normal respiratory effort, no retractions and no use of accessory muscles Cardio regular rate, regular rhythm, S1 normal heart sound, S2 normal heart sound and no murmurs GI normal to inspection, nondistended, normoactive bowel sounds, soft to palpation, non-tender and non-distended Extremity normal to inspection, full ROM and no clubbing, cyanosis or edema Skin no rashes or lesions noted and no wounds Neuro oriented x3, CN's II-XII intact bilaterally, moves all extremities, no focal motor deficits and no sensory deficits noted Sensorium / Orientation: awake and alert Motor Exam: strength 5/5 throughout Psych affect normal Weight / BMI Weight Weight: 197 lb 15.602 oz Body Mass Index (BMI) 36.2 ABG / Lab / Microbiology Data 10/31/22 05:20 10/31/22 05:20 Laboratory: Laboratory Results - last 24 hr 10/31/22 05:20: WBC 6.6, RBC 4.07 L, Hgb 10.8 L, Hct 34.3 L, MCV 84.3, MCH 26.5 L, MCHC 31.5 L, RDW Std Deviation 42.5, RDW Coeff of Lisa 13.8, Plt Count 229, MPV 10.8, Immature Gran % (Auto) 0.300, Neut % (Auto) 48.7, Lymph % (Auto) 37.0, [place] % (Auto) 7.9, Eos % (Auto) 5.8 H, Baso % (Auto) 0.3, Absolute Neuts (auto) 3.2, Absolute Lymphs (auto) 2.43, Nucleated RBC % 0, Sodium 139, Potassium 3.8, Chloride 109 H, Carbon Dioxide 25.0, Anion Gap 5, BUN 2 L, Creatinine 0.52 L, Estim Creat Clear Calc 136.49, Est GFR (MDRD) Af Amer 191, Est GFR (MDRD) Non-Af 158, BUN/Creatinine Ratio 3.8 L, Glucose 86, Calcium 8.7 Microbiology: Microbiology 10/29/22 17:21 Urine, Clean Catch Urine Culture - Preliminary GNR lactose moisture machine tender Radiography Diagnostic Testing: Radiology Impression KUB X-Ray 10/30/22 09:26 IMPRESSION: Moderate amount of fecal material is seen in the colon. Electronically Signed: Blayne Asencio MD at 14:04 EDT , D/C Instructions Discharge Diet: Low fat / Low cholesterol Discharge Activity: Return to Normal Activity Weight Bearing Status: Weight bearing as tolerated Call your doctor if you observe: Fever of 101 or Higher, Shortness of breath, Dizziness, Swelling in the ankles, Chest pain and - (intractable nausea and vomiting, abdominal pain. ) Meaningful Use Info Meaningful Use Diagnoses (Choose all that apply): None applicable Discharge Plan Admission Admit Date/Time: 10/29/22 20:38 Primary Reason for Your Visit: intractable nausea and vomiting Attending Provider: Stacey Godinez Primary Care Provider: Care Physician,No Primary Consulting Providers: Brenda Gomez; Erik Holguin Instructions Forms: Work / School Excuse Patient Instructions: Ileus Additional Instructions / Restrictions: follow up with dealer accounts investigator and therapist in [place] via telehealth as already scheduled Discharge Orders/Prescriptions Prescriptions: New cefdinir 300 mg capsule 300 mg PO BID Qty: 10 0RF Continued duzela 60 mg PO DAILY agoprex 25 mg PO QHS Concerta 15 mg PO DAILY Discontinued Rybelsus 18 mg PO DAILY Referrals / Follow Up: Care Physician,No Primary [Primary Care Provider] - Disposition Disposition (needs filled in before D/C Order can be placed): Home, Self Care Charges/Coding Visit Charges Inpatient E&M: 69554 Disch Hosp >30min
[2022-10-31] MEDS: Mag Hydrox/Al Hydrox/Simeth 30 ML UDC PO (12:17)
[2022-10-31 12:21] VITALS: BP 128/77; PULSE 78; RESP 18; TEMP 37; O2SAT 98
== END 2022-10-31 12:48 | disposition home or self-care (01) | DRG 690 ==
LOC: ED 20:39 → MS3 20:48
PROVIDERS: Family Medicine; Admitting Provider Family Medicine; Emergency Provider Emergency Medicine; Visit Provider Student in an Organized Health Care Education/Training Program
DX: N39.0 Urinary tract infection, site not specified (principal); E28.2 Polycystic ovarian syndrome; J45.909 Unspecified asthma, uncomplicated; F32.9 Major depressive disorder, single episode, unspecified; F41.9 Anxiety disorder, unspecified; E66.9 Obesity, unspecified; F90.9 Attention-deficit hyperactivity disorder, unspecified type
CPT/HCPCS: 36415; 74018; 74177; 80048; 80053; 81001; 83690; 84703; 85025; 87077; 87086; 87088; 87186; 93005; 94668; 99284; J7030; Q9967; A4216; J2405

== ENCOUNTER 2022-11-04 01:32 | Emergency (ER) | payer OTHER, SELFPAY ==
[2022-11-04 01:33] VITALS: BP 122/102; PULSE 109; RESP 16; TEMP 36.6; O2SAT 98; BMI 37.3
--- NOTE | 2022-11-04 01:36 | EX.ED.DYSGE1 ---
HPI History of Present Illness Chief Complaint: Abd Pain PFSH PFS Medical History (Updated 10/29/22 @ 21:44 by Frannie Busch) ADHD Anxiety and depression Asthma Obesity Patellar dislocation PCOS (polycystic ovarian syndrome) Home Medications Concerta 15 mg PO DAILY 10/29/22 [History Last Taken Unknown] agoprex 25 mg PO QHS 10/29/22 [History Last Taken Unknown] duzela 60 mg PO DAILY 10/29/22 [History Last Taken Unknown] cefdinir 300 mg capsule 300 mg PO BID #10 caps 10/31/22 [Rx Last Taken Unknown] ondansetron 4 mg disintegrating tablet 4 mg PO Q8H PRN nausea and vomiting 3 days #9 tabs 11/04/22 [Rx Last Taken Unknown] Allergy/AdvReac Type Severity Reaction Status Date / Time No Known Allergies Allergy Verified 11/04/22 01:33 Family History (Updated 10/29/22 @ 21:[address] Brenda Gomez MD) Mother Diabetes Thyroid disorder Father Hypertension History of alcohol abuse Surgical History (Updated 10/29/22 @ 21:[address] Brenda Gomez MD) No history of previous surgery Social History (Updated 10/29/22 @ 21:[address] Brenda Gomez MD) household members: other details: College dorm. Smoking Status: Never smoker alcohol intake: current alcohol intake frequency: holidays/special occasions only substance use type: does not use EXAM Physical Exam Const Vital Signs: 11/04/22 01:33 11/04/22 04:36 Temperature 97.8 F Temperature Source Oral Pulse Rate 109 H Respiratory Rate 16 16 Blood Pressure 122/102 H 108/86 H Blood Pressure Mean 108 Pulse Ox 98 Oxygen Delivery Method Room Air [facility] MDM Narrative Medical decision making narrative: HISTORY OF PRESENT ILLNESS: Female here with abdominal pain nausea vomiting. She states she developed worse diffuse abdominal pain nausea and vomiting and red stools. States is worse than it was a few days ago. Denies history of abdominal surgeries. REVIEW OF SYSTEMS: Pertinent positives: Abdominal pain nausea vomiting Pertinent negatives: Chest pain, shortness of breath PHYSICAL EXAM: Nursing triage notes reviewed, Vital signs reviewed Constitutional: please see mdm HENT: MMM Eyes: Pupils equal round and reactive to light, Extraocular muscles intact Neck: No stridor, no JVD, full neck ROM Lungs: Clear to auscultation, No wheezing or rales. No increased work of breathing, no conversational dyspnea, no accessory muscle use, no nasal flaring. No respiratory distress noted Heart: Regular rate and rhythm, No murmurs, No rubs and No gallops, 2+ distal pulses (radial, femoral, posterior tibial) in all extremities Abdomen: Soft, t diffuse TTP but no rigidity, rebound or guarding, no obvious peritoneal signs, no palpable pulsatile abdominal masses, no auscultated abdominal bruit. negative jeter sign. : No CVAT Extremities: No edema Neuro: No focal neurological deficits, cranial nerves II through XII intact, 5/5 strength in all extremities. Intact sensation to light touch in all extremities, 2+ reflexes bilateral patella tendons. Normal gait. No ataxia. Skin: No rash or lesions noted MEDICAL DECISION MAKING: Chief Complaint: Abdominal pain External records reviewed: ED visit from 10/29/2022 was reviewed: Seen here for abdominal pain nausea and vomiting. Noted recent increase in weight loss medication. CT scan of the abdomen pelvis at that time was reviewed shows evidence of ileus left-sided small bowel dilatation Factors affecting care: On Rybelsus for weight loss Social determinants of health: none History obtained from others: The patient's friend and roommate Consults: none ALL IMAGES (IF OBTAINED) HAVE BEEN PERSONALLY REVIEWED AND INTERPRETED BY MYSELF. CBC with leukocytosis suggestive of systemic inflammation, no anemia or thrombocytopenia BMP with mild hypokalemia, no other significant electrolyte abnormalities, no acute kidney injury, LFTs with no obvious evidence of hepatobiliary obstruction. Lipase is wnl indicating no pancreatic inflammation. CT scan of the abdomen pelvis showed no acute events. MDM Narrative: Initially tachycardic otherwise hemodynamically stable, afebrile and nontoxic-appearing. I considered the following differential diagnosis: AAA, small bowel obstruction, abdominal perforation, appendicitis, pancreatitis, hepatobiliary pathology (acute cholecystitis) For pathology given lack of lower adnexal tenderness including ovarian torsion, tubo-ovarian abscess. Will obtain test to rule out ectopic . The patient no right upper quadrant tenderness, there is no Jeter sign, she is not jaundiced. This patient for acute hepatobiliary pathology. In addition to this her LFTs and lipase were within normal limits. Urine test was negative on 10/29/2022. We will also obtain a CT scan of the abdomen pelvis to assess the patient's ileus to determine if she has a small bowel obstruction or other acute surgical pathology. We will obtain a broad lab work-up to assess signs of electrolyte disturbances, anion gap or other abnormalities. CT scan was unremarkable. Labs are unremarkable. No clear life-limiting etiology was identified. NO indication for further ED evaluation, surgical consultation or hospitalization at this time. Gave Zofran for home-going. At home pain medicine instructions. Gave GI follow-up. The patient and/or family, caregivers express understanding. The patient and/or family, caregivers agrees with the plan. Shared decision making: I will have a discussion with the patient and or visitors regarding risk/benefits of further testing or admission. They will be made aware of of the risk/benefits inherent in this decision they will be given the opportunity to voice understanding. Total critical care time today provided was at least 0 minutes. This excludes separately billable procedures. Critical care time (if documented) is secondary to the patient having high probability of clinically significant/life threatening deterioration in the patient's condition which required my urgent intervention. Impression: 1. Abdominal pain 2. Acute Nausea vomiting 3. Hypokalemia 4. Leukocytosis Dispo: discharge Lab Data Attestation: I reviewed the patient's lab results. Labs: Laboratory Results - last 24 hr 11/04/22 02:05 WBC 11.1 H RBC 4.58 Hgb 12.1 Hct 38.2 MCV 83.4 MCH 26.4 L MCHC 31.7 L RDW Std Deviation 41.6 RDW Coeff of Lisa 13.8 Plt Count 315 MPV 10.9 Immature Gran % (Auto) 0.400 Neut % (Auto) 62.0 Lymph % (Auto) 28.0 [place] % (Auto) 5.9 Eos % (Auto) 3.4 Baso % (Auto) 0.3 Absolute Neuts (auto) 6.9 Absolute Lymphs (auto) 3.12 Nucleated RBC % 0 Sodium 139 Potassium 3.4 L Chloride 106 Carbon Dioxide 26.0 Anion Gap 7 BUN 5 L Creatinine 0.59 Estim Creat Clear Calc 120.30 Est GFR (MDRD) Af Amer 166 Est GFR (MDRD) Non-Af 137 BUN/Creatinine Ratio 8.4 L Glucose 96 Calcium 9.0 Total Bilirubin 0.50 AST 27 ALT 68 H Alkaline Phosphatase 92 Total Protein 7.8 Albumin 3.2 Globulin 4.6 H Albumin/Globulin Ratio 0.7 L Lipase 48 Radiography Diagnostic Testing: Clinical Impression(s) from Imaging Studies Abdomen/Pelvis CT 11/04/22 01:38 IMPRESSION: Unremarkable study. Electronically Signed: Dave King MD at 4:02 EDT , Discharge Plan Triage Chief Complaint: Abd Pain ED Provider: Luis Angel Bradley Dx/Rx/DC Orders Instructions: ED Abdominal Pain Unkn Cause Fem Prescriptions: New ondansetron 4 mg tablet,disintegrating 4 mg PO Q8H PRN (Reason: nausea and vomiting) 3 Days Qty: 9 0RF No Action duzela 60 mg PO DAILY agoprex 25 mg PO QHS Concerta 15 mg PO DAILY cefdinir 300 mg capsule 300 mg PO BID Qty: 10 0RF Stand Alone Forms: ED Work / School Excuse Primary Care Provider: Care Physician,No Primary Referrals: Friend,Satnam, DO [Med Staff - Active Staff] - Activity Restrictions/Additional Instructions: Thank you for trusting us with your care today! Please take Tylenol (2 pills, 650 mg), ibuprofen (2 pills, 400 mg) every 6 hours as needed for pain and fever control. Please take Zofran as needed for nausea and vomiting. Please return to the emergency department if your symptoms change or worsen. Specifically you develop uncontrolled nausea and vomiting, severe pain, if you do not have bowel movements for greater than 7 days. Please follow with your primary care physician for further outpatient evaluation and management. Disposition Disposition: Home, Self Care Discharge Date/Time: 11/04/22 04:37
--- NOTE | 2022-11-04 01:38 | CT_ITS ---
STUDY: CT ABDOMEN AND PELVIS WITH CONTRAST - URINARY TRACT REASON FOR EXAM: Female, 22 years old. Abdominal pain RADIATION DOSAGE (If Supplied By Facility): CTDIvol = ( 18.14 ) mGy, DLP = ( 1079.86 ) mGycm TECHNIQUE: IV 100mL Isovue-370 was administered. Transaxial images were obtained from the dome of the diaphragm to the symphysis pubis in the arterial, nephrographic and excretory phases. Multiplanar coronal and sagittal images were reformatted. Individualized Dose Optimization Techniques Were Used For This CT. COMPARISON: CT Abdomen/PelvisSep 6 2022 FINDINGS: The visualized lung bases are unremarkable. The visualized portions of the heart are within normal limits. Normal liver. Normal gallbladder and extrahepatic biliary system. Normal spleen. Normal pancreas. Normal bilateral adrenal glands. Normal visualized stomach. Normal small intestine. Normal colon. The appendix is visualized and appears normal. Normal abdominal aorta. No retroperitoneal adenopathy. Normal right kidney. Normal left kidney. Normal urinary bladder. Normal abdominal wall. Normal osseous structures. CT/Abdomen/Pelvis W IV Cont ONLY IMPRESSION: Unremarkable study. Electronically Signed: Dave King MD at 4:02 EDT ,
[2022-11-04] MEDS: 0.9% Normal Saline (1000mL) 1,000 ML 1000 ML IV (02:14)
[2022-11-04] MEDS: Ondansetron 4 MG/2 ML Vial IV (02:14)
[2022-11-04 02:15] LABS: Absolute Lymphocyte Count 3.12 X10^3/uL (0.83-4.51); Absolute Neutrophil Count 6.9 X10^3/uL (2.0-7.7); Basophil# 0.03 X10^3/uL; Basophil% 0.3 % (0-1); Eosinophil# 0.38 X10^3/uL; Eosinophils% 3.4 % (0-5); Hematocrit 38.2 % (37-47); Hemoglobin 12.1 g/dL (12.0-15.0); Lymphocyte # 3.12 X10^3/ul (0.83-4.51); Mean Corp Hgb Conc 31.7 g/dL (32-36); Mean Corpuscular Hgb 26.4 pg (27.0-32.0); Mean Corpuscular Volume 83.4 fL (81-99); Mean Platelet Vol. 10.9 fl (6.2-12.0); Monocyte# 0.66 X10^3/uL; Monocyte% 5.9 % (0-10); NRBC Flagged by Analyzer 0 % (0-5); Platelet Count 315 K/mm3 (150-450); RBC Distribution Width CV 13.8 % (11.6-14.6); RBC Distribution Width SD 41.6 fl (35.1-43.9); Red Blood Count 4.58 M/mm3 (4.2-5.4); White Blood Count 11.1 K/mm3 (4.4-11.0)
[2022-11-04] MEDS: Ketorolac 15 MG/ML Vial IV (02:15)
[2022-11-04 02:32] LABS: ALB/GLOB Ratio 0.7 RATIO (0.9-2.4); AST(SGOT) 27 U/L (15-37); Alanine Aminotransfer ALT/SGPT 68 U/L (13-56); Albumin, Serum 3.2 g/dL (3.2-5.0); Alkaline Phosphatase 92 U/L (45-117); Anion Gap 7 (5-15); BUN 5 mg/dL (7-18); BUN/Creat Ratio 8.4 RATIO (10-20); Chloride 106 mmol/L (98-107); Creatinine, Serum 0.59 mg/dL (0.55-1.02); EST Glomerular Filtration Rate 137 mL/min (>60); Est Glom Filt Rate - Afr Amer 166 mL/min (>60); Globulin 4.6 g/dL (2.2-4.2); Glucose 96 mg/dL (74-106); Lipase 48 U/L (13-75); Potassium 3.4 mmol/L (3.5-5.1); Protein, Total 7.8 g/dL (6.4-8.2); Sodium Level 139 mmol/L (136-145)
[2022-11-04] MEDS: Famotidine 20 MG Tablet PO (04:29)
[2022-11-04 04:36] VITALS: BP 108/86; RESP 16
== END 2022-11-04 04:37 | disposition home or self-care (01) ==
PROVIDERS: Emergency Provider Emergency Medicine; Visit Provider Emergency Medicine
DX: E87.6 Hypokalemia (principal); D72.829 Elevated white blood cell count, unspecified; R10.9 Unspecified abdominal pain; R11.2 Nausea with vomiting, unspecified; F90.9 Attention-deficit hyperactivity disorder, unspecified type; F41.8 Other specified anxiety disorders
CPT/HCPCS: 74177; 80053; 83690; 85025; 96361; 96374; 96375; 99283; J7030; Q9967; A4216; J2405; J3490

== ENCOUNTER 2022-11-09 18:31 | Emergency (ER) | payer OTHER, SELFPAY ==
[2022-11-09 18:32] VITALS: BP 132/94; PULSE 96; RESP 16; TEMP 36.1; O2SAT 99; BMI 36.3
--- NOTE | 2022-11-09 18:53 | ED.VIS.GI ---
HPI HPI - GI History of Present Illness Chief Complaint: GI Bleed Narrative Narrative: 22-year-old female presents with rectal bleeding that began yesterday. She states it worsened today. There was bright red blood in the toilet that she noted. She denied any lightheadedness or chest pain, no shortness of breath. Of note, she states she was seen in the emergency department and admitted for ileus secondary to Rybelsus which was prescribed to her in [place] for weight loss. She was discharged after she had been admitted on October 29, approximately 11 days ago. She returned to the emergency department 5 days ago because she was having abdominal cramping, but states that the scans were clear. She presents because of the bright red blood per rectum that she experienced yesterday and today. She denies taking any blood thinners. No exacerbating or alleviating factors. PFSH PFS Medical History ADHD Anxiety and depression Asthma Obesity Patellar dislocation PCOS (polycystic ovarian syndrome) Home Medications Concerta 15 mg PO DAILY 10/29/22 [History Last Taken Unknown] agoprex 25 mg PO QHS 10/29/22 [History Last Taken Unknown] duzela 60 mg PO DAILY 10/29/22 [History Last Taken Unknown] cefdinir 300 mg capsule 300 mg PO BID #10 caps 10/31/22 [Rx Last Taken Unknown] ondansetron 4 mg disintegrating tablet 4 mg PO Q8H PRN nausea and vomiting 3 days #9 tabs 11/04/22 [Rx Last Taken Unknown] hydrocortisone 2.5 % topical cream with perineal applicator (Anusol-HC) 1 applic [place] BID anal fissures #30 grams 11/09/22 [Rx Last Taken Unknown] Allergy/AdvReac Type Severity Reaction Status Date / Time No Known Allergies Allergy Verified 11/04/22 01:33 Family History Mother Diabetes Thyroid disorder Father Hypertension History of alcohol abuse Surgical History No history of previous surgery Social History household members: other details: College dorm. Smoking Status: Never smoker alcohol intake: current alcohol intake frequency: holidays/special occasions only substance use type: does not use ROS ROS ED ROS Narrative Constitutional: No fever, no chills. HEENT: No sore throat. No neck pain. No loss of vision. No rhinorrhea. Cardiovascular: No chest pain. No palpitations. No pedal edema. Respiratory: No cough, no shortness of breath. Abdominal: No abdominal pain. No nausea. No vomiting. No hematemesis. Bright red blood per rectum starting yesterday. Genitourinary: No dysuria. No hematuria. Musculoskeletal: No myalgias. No arthralgias. Neurologic: No headaches. No dizziness. No lightheadedness. Skin: No rash. No change in color. Psychiatric: No depression. No anxiety. EXAM Physical Exam Narrative Exam Narrative: Afebrile. Vital signs noted. HEENT: Normocephalic. Atraumatic. PERRL, EOMI. Neck soft and supple. No point tenderness or step off. Cardiovascular: Regular rate and rhythm. No murmurs, rubs, or gallops appreciated. Respiratory: No tachypnea. Lungs clear to auscultation bilaterally. Gastrointestinal: Abdomen soft, nontender, with normoactive bowel sounds. No rebound or guarding. Chaperoned anoscopy performed and there is evidence of anal fissures, but no blood above the anoscope, no active rectal bleeding. Neurological: Awake. Alert. Nonfocal, nonlateralizing. Skin: No rash. Normal color. No pallor. Musculoskeletal: No pedal edema. Full range of motion extremities. Const Vital Signs: 11/09/22 18:32 11/09/22 19:17 Temperature 97.0 F L Temperature Source Oral Pulse Rate 96 Pulse Rate [Lying] 88 Pulse Rate [Sitting (for 1 minute prior to obtaining)] 89 Pulse Rate [Standing (for 1 minute prior to obtaining)] 100 Respiratory Rate 16 Blood Pressure 132/94 H Blood Pressure [Lying] 124/76 H Blood Pressure [Sitting (for 1 minute prior to obtaining)] 119/94 H Blood Pressure [Standing (for 1 minute prior to obtaining)] 118/59 L Blood Pressure Mean 106 Blood Pressure Mean [Lying] 92 Blood Pressure Mean [Sitting (for 1 minute prior to obtaining)] 102 Blood Pressure Mean [Standing (for 1 minute prior to obtaining)] 78 Pulse Ox 99 Oxygen Delivery Method Room Air MDM MDM MDM Narrative Medical decision making narrative: Differential diagnosis is lower GI bleed, mainly rectal bleeding secondary to hemorrhoid, or AV malformation. I reviewed her prior records and she is had CT scanning which did not show evidence of any diverticuli. I do not feel that repeat CT imaging is currently indicated. I will obtain a CBC, and a CMP, along with orthostatics to look for stable GI bleeding, and an increase in her BUN, but I do not think she has an upper GI bleed that she has not had nausea, vomiting, or hematemesis. Chaperoned anoscopy will also be performed. The nursing notes, and orthostatics are negative. I reviewed her laboratory work from today and she has a normal white count 9.0, hemoglobin stable and improved to 11.7, hematocrit 37.2, platelet count normal at 322. She has normal sodium of 136, normal potassium of 4.0, chloride normal at 106. BUN is low at 4 with creatinine 0.63. I have lower suspicion for upper GI bleeding. LFTs are grossly unremarkable in review. Given her chaperoned anoscopy showed anal fissures without active bleeding and no blood above the anoscope, I do feel that she can be discharged safely home. She will be given Anusol HC to apply to the rectal area and follow-up with gastroenterology, Dr. Bai. I do not feel she requires observation or admission. Return instructions to the emergency department were reviewed. Disposition is discharged home in stable condition. History & Record Review Discussion w/independent historian: Patient Additional record(s) reviewed:: Prior ED visit and Prior labs Lab Data Attestation: I reviewed the patient's lab results. Labs: Laboratory Results - last 24 hr 11/09/22 19:00 WBC 9.0 RBC 4.40 Hgb 11.7 L Hct 37.2 MCV 84.5 MCH 26.6 L MCHC 31.5 L RDW Std Deviation 42.6 RDW Coeff of Lisa 13.8 Plt Count 322 MPV 10.6 Immature Gran % (Auto) 0.300 Neut % (Auto) 66.0 Lymph % (Auto) 25.0 Sullivan % (Auto) 5.5 Eos % (Auto) 3.0 Baso % (Auto) 0.2 Absolute Neuts (auto) 5.9 Absolute Lymphs (auto) 2.24 Nucleated RBC % 0 Sodium 136 Potassium 4.0 Chloride 106 Carbon Dioxide 25.0 Anion Gap 5 BUN 4 L Creatinine 0.63 Estim Creat Clear Calc 112.66 Est GFR (MDRD) Af Amer 154 Est GFR (MDRD) Non-Af 128 BUN/Creatinine Ratio 6.3 L Glucose 100 Calcium 8.9 Total Bilirubin 0.50 AST 31 ALT 50 Alkaline Phosphatase 108 Total Protein 7.6 Albumin 3.1 L Globulin 4.5 H Albumin/Globulin Ratio 0.7 L Discharge Plan Triage Chief Complaint: GI Bleed ED Provider: Rocky Chahal Dx/Rx/DC Orders Clinical Impression: Rectal bleeding, Anal fissure Instructions: ED Understanding Anal Fissures, ED Lower GI Bleeding (Stable) Prescriptions: New hydrocortisone [Anusol-HC] 2.5 % cream with perineal applicator 1 applic [place] BID Qty: 30 0RF No Action duzela 60 mg PO DAILY agoprex 25 mg PO QHS Concerta 15 mg PO DAILY cefdinir 300 mg capsule 300 mg PO BID Qty: 10 0RF ondansetron 4 mg tablet,disintegrating 4 mg PO Q8H PRN (Reason: nausea and vomiting) 3 Days Qty: 9 0RF Primary Care Provider: Care Physician,No Primary Referrals: Friend,Satnam, DO [Med Staff - Active Staff] - As soon as possible Care Physician,No Primary [Primary Care Provider] - Disposition Disposition: Home, Self Care
[2022-11-09] MEDS: 0.9% Normal Saline (1000mL) 1,000 ML 1000 ML IV (19:16)
[2022-11-09 19:17] VITALS: BP 118/59; BP 119/94; BP 124/76; PULSE 100; PULSE 88; PULSE 89
[2022-11-09 19:22] LABS: Absolute Lymphocyte Count 2.24 X10^3/uL (0.83-4.51); Absolute Neutrophil Count 5.9 X10^3/uL (2.0-7.7); Basophil# 0.02 X10^3/uL; Basophil% 0.2 % (0-1); Eosinophil# 0.27 X10^3/uL; Hematocrit 37.2 % (37-47); Hemoglobin 11.7 g/dL (12.0-15.0); Lymphocyte # 2.24 X10^3/ul (0.83-4.51); Mean Corp Hgb Conc 31.5 g/dL (32-36); Mean Corpuscular Hgb 26.6 pg (27.0-32.0); Mean Corpuscular Volume 84.5 fL (81-99); Mean Platelet Vol. 10.6 fl (6.2-12.0); Monocyte# 0.49 X10^3/uL; Monocyte% 5.5 % (0-10); NRBC Flagged by Analyzer 0 % (0-5); Platelet Count 322 K/mm3 (150-450); RBC Distribution Width CV 13.8 % (11.6-14.6); RBC Distribution Width SD 42.6 fl (35.1-43.9)
[2022-11-09 19:43] LABS: ALB/GLOB Ratio 0.7 RATIO (0.9-2.4); AST(SGOT) 31 U/L (15-37); Alanine Aminotransfer ALT/SGPT 50 U/L (13-56); Albumin, Serum 3.1 g/dL (3.2-5.0); Alkaline Phosphatase 108 U/L (45-117); Anion Gap 5 (5-15); BUN 4 mg/dL (7-18); BUN/Creat Ratio 6.3 RATIO (10-20); Calcium,Total 8.9 mg/dL (8.5-10.1); Chloride 106 mmol/L (98-107); Creatinine, Serum 0.63 mg/dL (0.55-1.02); EST Glomerular Filtration Rate 128 mL/min (>60); Est Glom Filt Rate - Afr Amer 154 mL/min (>60); Estimated Creatinine Clearance 112.66 ml/min; Globulin 4.5 g/dL (2.2-4.2); Glucose 100 mg/dL (74-106); Protein, Total 7.6 g/dL (6.4-8.2); Sodium Level 136 mmol/L (136-145)
[2022-11-09 20:55] VITALS: BP 128/78; PULSE 85; RESP 18; O2SAT 98
== END 2022-11-09 21:40 | disposition home or self-care (01) ==
PROVIDERS: Emergency Provider Emergency Medicine; Visit Provider Emergency Medicine
DX: K62.5 Hemorrhage of anus and rectum (principal); K60.2 Anal fissure, unspecified; F90.9 Attention-deficit hyperactivity disorder, unspecified type; F41.8 Other specified anxiety disorders; Z79.899 Other long term (current) drug therapy
CPT/HCPCS: 46600; 80053; 85025; 96360; 99284; J7030; A4216

== ENCOUNTER 2024-01-08 23:17 | Emergency (ER) | payer OTHER, SELFPAY ==
[2024-01-08 23:17] VITALS: BP 138/88; PULSE 88; RESP 16; TEMP 36.6; O2SAT 95
[2024-01-08 23:22] VITALS: BMI 41.7
--- NOTE | 2024-01-08 23:33 | ED.VIS.LOWEX ---
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 She is able. She injured it before and had a chip fracture so wants to have it evaluated. No other injuries. PFSH PFSH Medical History Patellar dislocation ADHD Anxiety and depression Obesity Asthma PCOS (polycystic ovarian syndrome) Home Medications ?Medication ?Instructions ?Recorded ?Last Taken ?Type Concerta 15 mg PO DAILY 10/29/22 Unknown History agoprex 25 mg PO QHS 10/29/22 Unknown History duzela 60 mg PO DAILY 10/29/22 Unknown History cefdinir 300 mg capsule 300 mg PO BID #10 caps 10/31/22 Unknown Rx ondansetron 4 mg disintegrating 4 mg PO Q8H PRN nausea and 11/04/22 Unknown Rx tablet vomiting 3 days #9 tabs albuterol sulfate 90 mcg/actuation 2 puff inhalation Q6H PRN PRN 01/08/24 Unknown History aerosol inhaler shortness of breath or wheezing azithromycin 250 mg tablet mg PO 01/08/24 Unknown History prednisone 10 mg tablet mg PO 01/08/24 Unknown History Allergy/AdvReac Type Severity Reaction Status Date / Time No Known Allergies Allergy Verified 01/08/24 23:17 Family History Mother Diabetes Thyroid disorder Father Hypertension History of alcohol abuse Surgical History No history of previous surgery Social History household members: other details: College dorm. Smoking Status: Light Smoker (<10/day) alcohol intake: current alcohol intake frequency: holidays/special occasions only substance use type: does not use ROS ROS ED Constitutional Constitutional ED: Denies chills or fever(s) Musculoskeletal Musculoskeletal: Reports extremity pain; Denies neck pain Integumentary Denies Abrasions, rash or wounds Neurologic Neurologic: Denies paresthesias or weakness EXAM Physical Exam Const Vital Signs: 01/08/24 23:17 Temperature 98 F Temperature Source Temporal Pulse Rate 88 Respiratory Rate 16 Blood Pressure 138/88 H Blood Pressure Mean 104 Pulse Ox 95 Oxygen Delivery Method Room Air Positive well nourished and well developed General Appearance ED: well developed and NAD Neck full ROM and supple Back/Spine normal ROM and normal to inspection Extremity Extremity Narrative: Swelling and tenderness right lateral malleolus, limited range of motion of the ankle due to pain. No tenderness at the medial malleolus, base of fifth metatarsal, or proximal fibula. Joint is stable. 2+/4 dorsalis pedis pulse. Neuro oriented x3, no focal motor deficits and no sensory deficits noted Sensorium / Orientation: alert Psych mental status grossly normal and thought process normal Skin no wounds Rashes: no rashes MDM MDM MDM Narrative Medical decision making narrative: Three-view x-ray series of the right ankle are negative for acute fracture or dislocation on my interpretation. Patient was given an Aircast she declines crutches, she was given ibuprofen. Follow-up advised. Radiography Diagnostic Testing: Clinical Impression(s) from Imaging Studies Ankle X-Ray 01/08/24 23:35 IMPRESSION: Extensive soft tissue swelling. No acute osseous abnormality. Small tibiotalar joint effusion. Electronically Signed: Isma Steele DO at 23:50 EST , Discharge Plan Triage Chief Complaint: Lower Extremity Injury ED Provider: Silvio Cuba Dx/Rx/DC Orders Clinical Impression: Right ankle sprain Instructions: ED Sprain Ankle W X Ray Prescriptions: No Action duzela 60 mg PO DAILY agoprex 25 mg PO QHS Concerta 15 mg PO DAILY cefdinir 300 mg capsule 300 mg PO BID Qty: 10 0RF ondansetron 4 mg tablet,disintegrating 4 mg PO Q8H PRN (Reason: nausea and vomiting) 3 Days Qty: 9 0RF albuterol sulfate 90 mcg/actuation HFA aerosol inhaler 2 puff inhalation Q6H PRN PRN (Reason: shortness of breath or wheezing) prednisone 10 mg tablet PO azithromycin 250 mg tablet PO Primary Care Provider: Care Physician,No Primary Referrals: Abdoulaye Newberry MD [Med Staff - Active Staff] - 10-14 Days if not better Care Physician,No Primary [Primary Care Provider] - Activity Restrictions/Additional Instructions: ibuprofen as needed Print Language: Citizen Of [place] Disposition Disposition: Home, Self Care
--- NOTE | 2024-01-08 23:35 | RAD_ITS ---
EXAM: XR RIGHT ANKLE COMPLETE, 3 OR MORE VIEWS CLINICAL INDICATION: injury pain. TECHNIQUE: Frontal, lateral and oblique views of the right ankle. COMPARISON: No relevant prior studies available. FINDINGS: BONES/JOINTS: Small tibiotalar joint effusion. Small posterior calcaneal spur. No acute fracture. No subluxation. Normal alignment. No sclerotic or destructive changes observed. SOFT TISSUES: Extensive soft tissue swelling. No radiopaque foreign body. RAD/Ankle min 3 Views IMPRESSION: Extensive soft tissue swelling. No acute osseous abnormality. Small tibiotalar joint effusion. Electronically Signed: Isma Steele DO at 23:50 EST ,
[2024-01-08] MEDS: Ibuprofen 600 MG Tablet PO (23:37)
[2024-01-09 00:21] VITALS: BP 126/74; PULSE 92; RESP 18; TEMP 36.6; O2SAT 95
== END 2024-01-09 00:22 | disposition home or self-care (01) ==
PROVIDERS: Emergency Provider Emergency Medicine; Visit Provider Emergency Medicine
DX: S93.401A Sprain of unspecified ligament of right ankle, initial encounter (principal); F17.200 Nicotine dependence, unspecified, uncomplicated; X58.XXXA Exposure to other specified factors, initial encounter; Y93.01 Activity, walking, marching and hiking; Y92.214 College as the place of occurrence of the external cause; F90.9 Attention-deficit hyperactivity disorder, unspecified type; Z79.899 Other long term (current) drug therapy; F41.8 Other specified anxiety disorders
CPT/HCPCS: 73610; 99283

== ENCOUNTER 2024-01-11 11:44 | Emergency (ER) | payer OTHER, SELFPAY ==
[2024-01-11 11:44] VITALS: BP 142/87; PULSE 82; RESP 14; TEMP 36.8; O2SAT 98; BMI 47.2
--- NOTE | 2024-01-11 12:00 | EDS_ITS ---
HPI History of Present Illness Chief Complaint: Shortness of Breath Informant: patient Narrative Narrative: 23-year-old female presenting to the emergency room with cough and vomiting. Patient states that 9 days ago she went to the urgent care with a several day history of nausea vomiting. She states that she was given prednisone which she took her last dose today as well as azithromycin and finish that after the 5-day course of she states that she was clinically diagnosed with pneumonia the patient states that for her asthma she typically uses Symbicort and has a rescue inhaler. She states that her ears continue to hurt she has rhinorrhea nausea vomiting and continued cough. Cough is mostly nonproductive. [facility] Medical History Patellar dislocation ADHD Anxiety and depression Obesity Asthma PCOS (polycystic ovarian syndrome) Home Medications ?Medication ?Instructions ?Recorded ?Last Taken ?Type Concerta 15 mg PO DAILY 10/29/22 Unknown History agoprex 25 mg PO QHS 10/29/22 Unknown History duzela 60 mg PO DAILY 10/29/22 Unknown History cefdinir 300 mg capsule 300 mg PO BID #10 caps 10/31/22 Unknown Rx ondansetron 4 mg disintegrating 4 mg PO Q8H PRN nausea and 11/04/22 Unknown Rx tablet vomiting 3 days #9 tabs albuterol sulfate 90 mcg/actuation 2 puff inhalation Q6H PRN PRN 01/08/24 Unknown History aerosol inhaler shortness of breath or wheezing azithromycin 250 mg tablet mg PO 01/08/24 Unknown History prednisone 10 mg tablet mg PO 01/08/24 Unknown History albuterol sulfate 90 mcg/actuation 2 puff inhalation Q4H PRN PRN 01/11/24 Unknown Rx aerosol inhaler (Ventolin HFA) Wheezing ##1 Allergy/AdvReac Type Severity Reaction Status Date / Time No Known Allergies Allergy Verified 01/11/24 11:44 Family History Mother Diabetes Thyroid disorder Father Hypertension History of alcohol abuse Surgical History No history of previous surgery Social History household members: other details: College dorm. Smoking Status: Light Smoker (<10/day) alcohol intake: current alcohol intake frequency: holidays/special occasions only substance use type: does not use ROS ROS ED Constitutional Constitutional ED: Denies chills, fever(s) or weight loss Eyes Eyes: Denies change in vision or diplopia ENT ENT ED: Reports ear pain and rhinorrhea; Denies sore throat Cardiovascular Cardiovascular: Denies chest pain, orthopnea, palpitations or racing heartbeat Respiratory/Chest Respiratory/Chest: Reports cough and dyspnea; Denies orthopnea Gastrointestinal Gastrointestinal: Reports nausea and vomiting; Denies abdominal pain or diarrhea Genitourinary Genitourinary ED: Denies dysuria, hematuria or urinary frequency Musculoskeletal Musculoskeletal: Denies arthralgias or myalgias Integumentary Denies abscess or rash Neurologic Neurologic: Denies headache(s) or weakness Psychiatric Psychiatric: Denies anxiety, depression, suicidal ideation or suicidal thoughts Endocrine Endocrinology: Denies polydipsia, polyphagia or polyuria Allergic/Immunologic Allergic/Immunologic ED: Denies mouth swelling, tongue swelling or urticaria EXAM Physical Exam Const Vital Signs: 01/11/24 11:44 01/11/24 11:44 01/11/24 12:08 Temperature 98.3 F Temperature Source Oral Pulse Rate 82 96 Respiratory Rate 14 20 H Respiratory Effort Normal Non-Labored Respiratory Depth Normal Respiratory Pattern Normal Blood Pressure 142/87 H Blood Pressure Mean 105 Pulse Ox 98 Oxygen Delivery Method Room Air Room Air 01/11/24 12:09 01/11/24 13:32 Temperature 98.8 F Temperature Source Pulse Rate 94 Respiratory Rate 16 Respiratory Effort Respiratory Depth Respiratory Pattern Blood Pressure 126/99 H Blood Pressure Mean 108 Pulse Ox 100 100 Oxygen Delivery Method Room Air Positive well nourished, well developed and obese General Appearance ED: well developed and NAD Nutritional Appearance: obese HEENT Reports normocephalic, head/scalp atraumatic and moist mucous membranes HEENT Narrative: No oral pharyngeal erythema. Tympanic membranes appear normal. Mild nasal congestion. Eyes PERRL and EOMs intact bilaterally Neck no lymphadenopathy, supple and no JVD Resp normal respiratory effort and clear to auscultation bilaterally Resp Narrative: Dry cough. Cardio regular rate, regular rhythm and no murmurs GI normal to inspection, nondistended, normoactive bowel sounds and non-tender Palpation: soft Back/Spine no CVA tenderness and normal ROM Extremity normal to inspection General Extremety ED: Negative for edema General Extremity: Negative for edema Neuro oriented x3 and CN's II-XII intact bilaterally Sensorium / Orientation: alert Motor Exam: strength 5/5 throughout Psych mental status grossly normal Mood & Affect: Negative for depressed or tearful Skin no rashes or lesions noted and no wounds MDM MDM MDM Narrative Medical decision making narrative: Differential diagnosis includes but not limited to bronchitis pneumonia pleural effusion pneumothorax postnasal drip asthma exacerbation bronchospasm -Interpretation of the chest x-ray is no acute process. There is no pleural effusion infiltrate or pneumothorax noted. Normal mediastinal silhouette. Patient received a DuoNeb. There is a strong possibility this could be viral. Has not been 2 weeks since she has been sick. She still has postnasal drip with congestion and bilateral ear pain which I think is most likely due to eustachian tube dysfunction. I do not hear significant wheezing and she was on a tapering dose of prednisone. She has already completed a Z-Deven. She is almost out of her albuterol inhaler which I will refill for her. History & Record Review Discussion w/independent historian: Patient Radiography Diagnostic Testing: Clinical Impression(s) from Imaging Studies Chest X-Ray 01/11/24 12:16 IMPRESSION: No radiographic evidence of acute cardiopulmonary disease. Electronically Signed: Connor Frost MD at 12:41 EST , Discharge Plan Triage Chief Complaint: Shortness of Breath ED Provider: Cristobal Pagan Dx/Rx/DC Orders Clinical Impression: Bronchitis Instructions: ED Bronchitis, No Antibiotic (Adult) Prescriptions: New albuterol sulfate [Ventolin HFA] 90 mcg/actuation HFA aerosol inhaler 2 puff inhalation Q4H PRN PRN (Reason: Wheezing) Qty: 1 0RF No Action duzela 60 mg PO DAILY agoprex 25 mg PO QHS Concerta 15 mg PO DAILY cefdinir 300 mg capsule 300 mg PO BID Qty: 10 0RF ondansetron 4 mg tablet,disintegrating 4 mg PO Q8H PRN (Reason: nausea and vomiting) 3 Days Qty: 9 0RF albuterol sulfate 90 mcg/actuation HFA aerosol inhaler 2 puff inhalation Q6H PRN PRN (Reason: shortness of breath or wheezing) prednisone 10 mg tablet PO azithromycin 250 mg tablet PO Primary Care Provider: Care Physician,No Primary Referrals: Care Physician,No Primary [Primary Care Provider] - Print Language: Thai Disposition Disposition: Home, Self Care Discharge Date/Time: 01/11/24 13:34
[2024-01-11] MEDS: Ipratropium/Albuterol Sulfate 3 ML AMPUL.NEB INHALATION (12:07)
[2024-01-11 12:08] VITALS: PULSE 96; RESP 20
[2024-01-11 12:09] VITALS: O2SAT 100
--- NOTE | 2024-01-11 12:16 | RAD_ITS ---
INDICATION: cough EXAMINATION/TECHNIQUE: X-RAY - XR Chest 2 Views COMPARISON: No relevant prior comparison study available FINDINGS: LINES/DEVICES: None. LUNGS: No consolidation, edema or effusion. No pneumothorax. MEDIASTINUM AND CARDIOVASCULAR STRUCTURES: Cardiac silhouette not enlarged. Central airways and mediastinal contour are unremarkable. BONES AND SOFT TISSUES: Unremarkable. RAD/Chest PA and Lateral IMPRESSION: No radiographic evidence of acute cardiopulmonary disease. Electronically Signed: Connor Frost MD at 12:41 EST ,
[2024-01-11 13:32] VITALS: BP 126/99; PULSE 94; RESP 16; TEMP 37.1; O2SAT 100
== END 2024-01-11 13:34 | disposition home or self-care (01) ==
PROVIDERS: Emergency Provider Emergency Medicine; Visit Provider Emergency Medicine
DX: J40 Bronchitis, not specified as acute or chronic (principal); F17.200 Nicotine dependence, unspecified, uncomplicated; Z79.51 Long term (current) use of inhaled steroids; F41.8 Other specified anxiety disorders; Z79.899 Other long term (current) drug therapy
CPT/HCPCS: 71046; 94640; 99282

== ENCOUNTER 2024-05-01 15:51 | Outpatient (REF) | payer SELFPAY | END 2024-05-01 16:00 | disposition home or self-care (01) | LOC: EDREF 15:51 | DX: Z04.41 Encounter for examination and observation following alleged adult rape (principal) ==

== ENCOUNTER 2024-05-03 17:32 | Emergency (ER) | payer SELFPAY ==
[2024-05-03 17:32] VITALS: BP 133/79; PULSE 102; RESP 18; TEMP 36.2; O2SAT 100; BMI 40.4
[2024-05-03 18:51] VITALS: BMI 40.4
== END 2024-05-03 19:15 | disposition home or self-care (01) ==
LOC: ED 18:51
PROVIDERS: Emergency Provider Emergency Medicine; Visit Provider Emergency Medicine
DX: Z00.00 Encounter for general adult medical examination without abnormal findings (principal)
CPT/HCPCS: 99281